=== PATIENT | male | born 1995 | race African-American/Black ===

== ENCOUNTER 2016-12-02 11:43 | Emergency (ER) | payer MEDICAID ==
[~2016-12-02] VITALS: Ht 175.3 cm; Wt 61.0 kg
[2016-12-02 11:46] VITALS: BP 91/60
[2016-12-02] MEDS ORDERED: TETANUS, DIPHTHERIA, PERTUSSIS VAC/PF 0.5ML (>7YR OLD) IM ONE (12:15)
[2016-12-02] MEDS ORDERED: IBUPROFEN 800MG TABLET PO ONE (13:45)
== END 2016-12-02 14:00 | disposition left against medical advice (07) ==
LOC: ER 12:32
DX: S62.396A Other fracture of fifth metacarpal bone, right hand, initial encounter for closed fracture (principal); M25.532 Pain in left wrist; V00.131A Fall from skateboard, initial encounter; Y93.51 Activity, roller skating (inline) and skateboarding; Y92.828 Other wilderness area as the place of occurrence of the external cause; Y99.8 Other external cause status
CPT/HCPCS: 73110; 73130; 90471; 90715; 99284; X7700; Z7610

== ENCOUNTER 2016-12-04 08:33 | Emergency (ER) | payer MEDICAID ==
[~2016-12-04] VITALS: Ht 170.2 cm; Wt 61.0 kg
[2016-12-04 08:55] VITALS: BP 122/63
== END 2016-12-04 10:21 | disposition home or self-care (01) ==
LOC: ER 08:33
DX: S62.326A Displaced fracture of shaft of fifth metacarpal bone, right hand, initial encounter for closed fracture (principal); J45.909 Unspecified asthma, uncomplicated; V00.131A Fall from skateboard, initial encounter; Y93.51 Activity, roller skating (inline) and skateboarding; Y92.89 Other specified places as the place of occurrence of the external cause; Y99.8 Other external cause status
CPT/HCPCS: 29125; 99283; A4565

== ENCOUNTER 2017-08-14 11:52 | Emergency (ER) | payer MEDICAID ==
[~2017-08-14] VITALS: Ht 180.3 cm; Wt 61.0 kg
[2017-08-14 12:14] VITALS: BP 143/60
== END 2017-08-14 14:00 | disposition home or self-care (01) ==
LOC: ER 13:15
DX: T65.891A Toxic effect of other specified substances, accidental (unintentional), initial encounter (principal); T23.471A Corrosion of unspecified degree of right wrist, initial encounter; T23.472A Corrosion of unspecified degree of left wrist, initial encounter; F12.10 Cannabis abuse, uncomplicated; J45.909 Unspecified asthma, uncomplicated; H10.9 Unspecified conjunctivitis; I10 Essential (primary) hypertension; Y93.89 Activity, other specified; Y92.89 Other specified places as the place of occurrence of the external cause; Y99.8 Other external cause status
CPT/HCPCS: 99283